=== PATIENT | female | born 1985 | race Two or more races ===

== ENCOUNTER 2025-01-07 15:54 | Emergency (ER) | payer MEDICAID, SELFPAY ==
[2025-01-07 16:22] VITALS: BP 99/67; PULSE 63; RESP 20; TEMP 36.7; O2SAT 100
--- NOTE | 2025-01-07 16:23 | XR_ITS ---
EXAMINATION: CT abdomen pelvis with intravenous contrast 3D sagittal coronal reconstructions 3D reconstructions Date and time: January 07, 2025, 2055 hours, comparison August 16, 2021 CTDI 6.40 DLP 316 INDICATIONS: Left upper and lower quadrant abdominal pain nausea vomiting today TECHNIQUE AND FINDINGS: Multiple 3.0 mm axial images abdomen/pelvis post intravenous administration 60 cc [id number] 2D sagittal, reconstructions 3D reconstructions No focal liver or splenic lesions Absent gallbladder No pancreatic or adrenal mass No common bile duct stones No renal or ureteral calculi, no hydronephrosis Aorta normal size Normal appendix No bowel obstruction Scattered colonic diverticulosis Retroverted uterus Suspicious for 15 mm right adnexal cyst Urinary bladder intact Osseous structures intact IMPRESSION: No renal or ureteral calculi No CT findings of appendicitis or bowel obstruction Colonic diverticulosis, no diverticulitis Suspicious for 15 mm right adnexal cyst, consider pelvic sonography follow-up
--- NOTE | 2025-01-07 16:23 | PD.EDRME ---
Rapid Medical Screening Exam RME Arrival date/time: 01/07/25 15:54 39-year-old female reports with complaints of left upper and lower quadrant abdominal pain nausea and vomiting x 5 days Chief Complaint: Abdominal Pain Time Seen by Provider: 01/07/25 16:17 Vital signs: Vital Signs Temperature 98.1 F 01/07/25 16:22 Pulse Rate 63 01/07/25 16:22 Respiratory Rate 20 01/07/25 16:22 Blood Pressure 99/67 01/07/25 16:22 Pulse Oximetry (%) 100 01/07/25 16:22 Oxygen Delivery Method Room Air 01/07/25 16:22
[2025-01-07 16:51] LABS: Basophils # (Auto) 0.0 Thou/mm3 (0.0-0.2); Basophils % (Auto) 0 % (0-2.5); Eosinophils # (Auto) 0.0 Thou/mm3 (0.0-0.5); Eosinophils % (Auto) 0 % (0-10); Hematocrit 37.5 % (36.0-46.0); Hemoglobin 13.2 g/dL (12.0-16.0); Immature Granulocytes Auto 0.01 Thou/mm3 (0.00-0.00); Lymphocytes # (Auto) 1.0 Thou/mm3 (1.0-4.8); Lymphocytes % (Auto) 9 % (10-50); Mean Corpuscular HGB Conc 35.2 g/dl (31.0-37.0); Mean Corpuscular Hemoglobin 29.5 pg (25.0-35.0); Mean Corpuscular Volume 84 fL (80-100); Monocytes # (Auto) 0.2 Thou/mm3 (0.0-0.8); Monocytes % (Auto) 2 % (0-12); Neutrophils # (Auto) 10.1 Thou/mm3 (1.8-7.7); Neutrophils % (Auto) 89 % (37-80); Nucleated Red Blood Cell # 0.00 Thou/mm3 (0.00-0.00); Nucleated Red Blood Cell % 0 /100 WBC (0); Platelet Count 275 Thou/mm3 (140-440); RDW Standard Deviation 38.6 fL (36.4-46.3); Red Blood Count 4.48 Miln/mm3 (4.00-5.20); White Blood Count 11.3 Thou/mm3 (3.6-11.0)
[2025-01-07 17:10] LABS: Alanine Aminotransferase 10 U/L (10-49); Albumin, Serum 4.9 gm/dL (3.5-5.0); Albumin/Globulin Ratio 1.7 (1.2-2.2); Alkaline Phosphatase 74 U/L (46-116); Anion Gap 12 (7-16); Aspartate Amino Transferase 17 U/L (0-34); BUN/Creatinine Ratio 11 Ratio (12-20); Bilirubin,Total 0.4 mg/dL (0.3-1.2); Blood Urea Nitrogen 9 mg/dL (9-23); Calcium 9.8 mg/dL (8.3-10.6); Calcium (Corrected) 9.8 mg/dL (8.5-10.1); Carbon Dioxide 24.5 mMol/L (20.0-31.0); Chloride 104 mMol/L (98-107); Creatinine (Component) 0.8 mg/dL (0.6-1.3); Globulin 2.9 gm/dL (2.3-3.5); Glucose 115 mg/dL (74-106); Lipase 27 U/L (12-53); Osmolality,Calculated 279 (275-295); Potassium 4.0 mMol/L (3.4-5.1); Sodium 140 mMol/L (136-145); Total Protein 7.8 gm/dL (5.7-8.2); eGFR > 60 See Note
[2025-01-07 17:10] LABS: Collection Type, Urine Clean Catch
[2025-01-07 17:12] LABS: HCG,Qualitative Serum Negative
[2025-01-07 17:26] LABS: Bacteria,Urine Rare; Bilirubin,Urine Negative (Negative); Blood,Urine Negative (Negative); Clarity,Urine Clear (Clear/Hazy); Color,Urine Yellow (Lt Yel-Yel); Culture Indicated,Urine Not Indicated; Glucose, Urine Negative (Negative); Ketones,Urine 3+ (Negative); Leukocyte Esterase,Urine Negative (Negative); Nitrite,Urine Negative (Negative); PH,Urine 6.0 (5.0-7.0); Protein,Urine Trace (Neg - Trace); RBC,Urine 4 /hpf (0-3); Specific Gravity,Urine 1.030 (1.001-1.035); Squamous Epithelial Cell,Urine 4 /hpf (0-5); Urobilinogen,Urine Negative mg/dL (0.0-1.0); WBC,Urine 2 /hpf (0-5)
[2025-01-07] MEDS: PROMETHAZINE HCL 25 MG TABLET PO (20:22)
--- NOTE | 2025-01-07 22:04 | PD.EDABDPN ---
ED Abdominal Pain RME/HPI General Chief Complaint: Abdominal Pain Stated complaint: LEFT ABD PAIN & VOMITING Time seen by provider: 01/07/25 16:17 Arrival date/time: 01/07/25 15:54 RME / HPI RME / HPI narrative: 01/07/25 15:54 39-year-old female reports with complaints of left upper and lower quadrant abdominal pain nausea and vomiting x5 days. Patient's last menstrual period was 1 week prior. Denies diarrhea, abnormal vaginal discharge, dysuria. Past medical history: None Past surgical history: None Related Data Allergies Allergy/AdvReac Type Severity Reaction Status Date / Time No Known Allergies Allergy Verified 01/07/25 15:58 Past Medical History Past Medical History CARDIAC: Negative Cardiac Disorders RESPIRATORY: Negative Asthma GENITOURINARY: Negative Renal Disease ENDOCRINE: Negative Diabetes Mellitus Type 2 HEMATOLOGIC: Negative Sickle Cell Disease Social History SMOKING STATUS: Never smoker ED Exam Narrative Physical exam: Constitutional: Patient alert and oriented. Well appearing. No acute distress. Not toxic appearing. Head: Normocephalic, atraumatic. Eyes: Periorbital regions bilaterally normal to inspection. Conjunctiva clear bilaterally. Sclera anicteric bilaterally. Pupils equal, round, reactive to light bilaterally. Extraocular movements intact bilaterally. Mouth/Throat: Mucous membranes moist. No stridor or muffled voice. No trismus. Handling secretions without difficulty. Airway widely patent. Neck: Supple. Trachea midline. No JVD. No nuchal rigidity. Normal range of motion. Respiratory: Normal effort. No accessory muscle use or respiratory distress. Lungs clear to auscultation bilaterally without rhonchi, wheezes, or crackles. Cardiovascular: RRR. Normal S1/S2. No murmurs or rubs. Radial pulses intact bilaterally. Abdomen: Soft. Non-distended. Positive left lower quadrant tenderness to palpation. No pulsatile mass. No guarding or rebound. Negative Butler?s sign. Negative McBurney?s point tenderness. Negative Rovsing?s. Back: No midline tenderness or step-offs. No CVA tenderness to palpation bilaterally. Upper Extremities: No gross deformities. Lower Extremities: No gross deformities. No edema or calf tenderness. Neuro: Speech normal. No gross motor or sensory deficits to upper or lower extremities bilaterally. GCS 15. CN II?XII grossly intact. Skin: Warm, dry, normal color. Psych: Normal affect. Cooperative. Normal insight. Course Quality Measures none Orders Category Date Time Status CT Screening NOW Care 01/07/25 16:[address] abdomen pelvis w con Stat Exams 01/07/25 16:23 Completed US pelvic complete Stat Exams 01/07/25 22:10 Completed CBC Stat Lab 01/07/25 16:35 Completed CMP [Comprehensive Metabolic Panel] Stat Lab 01/07/25 16:35 Completed HCG,Qualitative Serum Stat Lab 01/07/25 16:35 Completed Lipase Stat Lab 01/07/25 16:35 Completed UA, C/S IF [Urinalysis, C/S if Indicated] Stat Lab 01/07/25 17:03 Completed Ketorolac Inj [Toradol Inj] Med 01/07/25 22:11 Discontinued 30 mg IVP X1 ONE Morphine* Inj Med 01/07/25 23:37 Once 4 mg IVP X1 ONE Ondansetron Inj [Zofran Inj] Med 01/07/25 23:37 Once 4 mg IVP X1 ONE Promethazine HCl [Phenergan] Med 01/07/25 19:40 Discontinued 25 mg PO X1 ONE oxyCODONE/APAP 5/325 [Percocet 5/325] Med 01/07/25 19:40 Discontinued 1 tab PO X1 ONE Vital Signs Vital signs: Vital Signs Temperature 98.1 F 01/07/25 16:22 Pulse Rate 63 01/07/25 16:22 Respiratory Rate 20 01/07/25 16:22 Blood Pressure 99/67 01/07/25 16:22 Pulse Oximetry (%) 100 01/07/25 16:22 Oxygen Delivery Method Room Air 01/07/25 16:22 Abdominal Pain MDM MDM Narrative MDM Narrative:: MDM The patient presents with abdominal pain of unclear etiology. Evaluation today has not identified an emergent cause. CT scan and US notable for R sided adnexal cyst otherwise no acute intra-abdominal or pelvic abn to explain pts pain. Given the benign abdominal exam and lack of significant risk factors, I have very low suspicion for strangulated or incarcerated hernia (no skin changes or irreducible mass), perforation (no abrupt pain or peritonitis), small bowel obstruction/volvulus (no peritoneal signs), AAA/dissection (no pulsatile mass, extremities warm bilaterally), mesenteric ischemia (no history of vascular disease, atrial fibrillation, postprandial pain, or blood in stool), acute infectious processes such as appendicitis or abscess (no peritonitis), or any other life-threatening disease. Serial abdominal exams were benign throughout the ED stay, and the patient tolerated oral intake without difficulty. I considered admission; however, given the negative workup today, stable appearance, and absence of peritoneal signs, the risks outweigh the benefits at this time. Pt aware that undifferentiated abdominal pain may represent an early acute evolving abdominal and this can not be excluded at this time. The patient has been instructed to return for mandatory re-evaluation within 1 day and to seek care immediately if symptoms persist, worsen, or change in any way. The patient may follow up with their primary care provider or return to the ED as appropriate. The patient appears stable for discharge at this time. Patient data External records reviewed:: None Clinical information provided by:: patient Social determinants that could affect healthcare access:: none Patient has the following chronic illnesses:: As noted How is presenting disease/condition affected by chronic disease/condition?: no chronic disease Evaluation data The following diagnostics were reviewed and interpreted by me:: lab results and radiology exam(s) Lab and/or radiology exams considered but not ordered:: Additional Labs and radiology considered, but not ordered as they were not clinically indicated at this time. Interpretation Summary: CBC notable for mild leukocytosis with a white count of 11, neutrophil number minimally elevated at 10.1, left shift of 89% otherwise CBC unremarkable CMP with minimally elevated glucose 115 otherwise no severe metabolic or electrolyte abnormality, lipase within normal limits, hCG qualitative negative Urine ketones, 4 RBCs noted in urine CT notable for right-sided adnexal cyst otherwise no acute intra-abdominal or pelvic abnormality Ultrasound notable for right-sided adnexal cyst however good ovarian flow bilaterally Medications / Prescriptions Medications or Prescriptions considered but not ordered:: I considered prescription management (both outpatient prescriptions AND drug treatment in the ER) and decided that this was necessary and was prescribed as charted. Medication administrations:: Medication Administration History Discontinued Medications Ketorolac Tromethamine (Ketorolac Inj 30 Mg/Ml Vial) 30 mg IVP X1 ONE Stop: 01/07/25 22:12 Last Admin: 01/07/25 23:05 Dose: 30 mg Documented By: ALMA Oxycodone/Acetaminophen (Oxycodone/Apap 5/325 Tablet) 1 tab PO X1 ONE Stop: 01/07/25 19:41 Last Admin: 01/07/25 20:22 Dose: 1 tab Documented By: ALMA Promethazine HCl (Promethazine Hcl 25 Mg Tablet) 25 mg PO X1 ONE Stop: 01/07/25 19:41 Last Admin: 01/07/25 20:22 Dose: 25 mg Documented By: ALMA As noted Consultations Consultation(s) initiated? (list below): No Diagnosis Differential diagnosis abdominal pain: abdominal pain, constipation and diverticulitis Most likely diagnosis given after review of the tests above:: Undifferentiated abdominal pain Admission Indicated Admission indicated?: not indicated Admission Request Was there a request for admission?: No Disposition Plan Disposition Plan: Discharge Discharge Attestation Discharge Attestation: The patient and all family members were given an opportunity to ask questions and understood the discharge instructions. Discharge instructions specifically effects, indications for sooner follow up or return to the emergency department, and the expected course of current diagnosis. Patient condition: Stable Discharge Plan Plan Patient Disposition: HOME (Self Care) Patient condition on transfer: Stable Prescriptions/Referrals Referrals: No Primary/Family,Physician [Primary Care Provider] - In 1 week Problem List Clinical Impression: Abdominal pain Patient/Caregiver Discharge Instructions Education Materials: Abdominal Pain Additional Instructions: Follow up with your primary medical doctor within 24 hours. Return to the Emergency Room immediately for any new, worsening, continuing symptoms or any concerns at all. Return to the Emergency Room within 24 hours if you are unable to follow up with your primary medical doctor within 24 hours. Print Language: Bahamian Stand Alone Forms: Emelia Award Info., Patient Portal Info Letter RUDOLPH/JUWAN Supervising Physician RUDOLPH/JUWAN Supervising Physician: Dr. Lomax
--- NOTE | 2025-01-07 22:10 | XR_ITS ---
EXAMINATION: Pelvic sonogram transabdominal Date and time: January 07, 2025, 2215 hours INDICATIONS: Left lower abdomen and pelvic pain today TECHNIQUE AND FINDINGS: Multiple transabdominal sonographic images pelvis Uterus 10.3 cm endometrial stripe 0.7 cm Free fluid in the cervix No uterine mass Right ovary 3.0 cm arterial flow 16 mm follicular cyst Left ovary 3.5 cm arterial flow No fluid in the cul-de-sac IMPRESSION: No uterine mass or intrauterine gestation Mild free fluid in the cervix Right ovarian follicular cyst 16 x 10 x 15 mm
[2025-01-07] MEDS: KETOROLAC INJ 30 MG/ML VIAL IVP (23:05)
[2025-01-07] MEDS: MORPHINE SULF INJ 4 MG/ML VIAL IVP (23:50)
[2025-01-07] MEDS: ONDANSETRON INJ 2 MG/ML INJ 2 ML 4 MG IVP (23:50)
[2025-01-08 00:42] VITALS: BP 104/65; PULSE 60; RESP 18; TEMP 36.7; O2SAT 100
== END 2025-01-08 00:44 | disposition home or self-care (01) ==
PROVIDERS: Physician Assistant; Emergency Provider Emergency Medicine
DX: R10.9 Unspecified abdominal pain (principal)
CPT/HCPCS: 36415; 74177; 76856; 80053; 81001; 83690; 84703; 85025; 96374; 96375; 99284; A4649; J1885; J2270; J2405; Q9967; A9270